=== PATIENT | female | born 1995 | race Two or more races ===

== ENCOUNTER 2018-06-03 11:08 | Emergency (ER) | payer SELFPAY ==
[~2018-06-03] VITALS: Ht 160 cm; Wt 77.1 kg
[2018-06-03 14:40] VITALS: BP 145/89
== END 2018-06-03 15:18 | disposition home or self-care (01) ==
LOC: ER 11:12
DX: N94.6 Dysmenorrhea, unspecified (principal); N39.0 Urinary tract infection, site not specified
CPT/HCPCS: 36415; 81002; 81025; 84702

== ENCOUNTER 2020-02-20 22:54 | Inpatient (IN) | payer SELFPAY ==
[~2020-02-20] VITALS: Ht 160 cm; Wt 84.8 kg
[2020-02-20 23:30] LABS: Basophils # (auto) 0.1 10 ^3/uL (0-0.2); Basophils % (auto) 0.6 % (0.0-2.0); Eosinophils # (auto) 0 10 ^3/uL (0-0.8); Eosinophils % (auto) 0.3 % (0.0-7.0); Hematocrit 40.3 % (36.0-46.0); Hemoglobin 13.6 g/dL (12.2-16.2); Lymphocytes # (auto) 1.2 10 ^3/uL (0.4-5.4); Lymphocytes % (auto) 9.9 % (10.0-50.0); Mean Corpuscular Hemoglobin 31.7 pg (28.0-32.0); Mean Corpuscular Hgb Conc. 33.7 g/dL (32.0-36.0); Mean Corpuscular Volume 94.2 fL (80.0-100.0); Monocytes # (auto) 0.5 10 ^3/uL (0-1.3); Monocytes % (auto) 4.3 % (0.0-12.0); Neutrophils # (auto) 10.2 10 ^3/uL (1.6-8.6); Neutrophils % (auto) 84.9 % (37.0-80.0); Platelet Count (auto) 357 10^3/uL (140-450); Red Blood Cells 4.28 10^6/uL (4.0-5.20); Red Cell Distribution Width 12.8 % (11.8-14.3)
[2020-02-20 23:50] LABS: Albumin 4.1 g/dL (3.4-5.0); BUN/Creatinine Ratio 12.2; Calcium 9.1 mg/dL (8.5-10.1); Potassium 3.5 mmol/L (3.5-5.1)
[2020-02-20 23:53] LABS: Bilirubin, Total 1.4 mg/dL (0.2-1.0); Total Protein 8.4 g/dL (6.4-8.2)
[2020-02-21 00:39] LABS: Urine Bacteria FEW /hpf (None Seen); Urine Blood 1+ /uL (Negative); Urine Mucus FEW (None Seen); Urine Specific Gravity 1.028 (1.001-1.035); Urine WBC 68 /hpf (0 - 5)
[2020-02-21] MEDS ORDERED: MORPHINE SULFATE 4 MG/ML SYR/VIAL IV ONE (02:15)
[2020-02-21] MEDS ORDERED: cefTRIAXone 1GM/50ML D5W 50 ML IV ONE (02:15)
[2020-02-21] MEDS ORDERED: metroNIDAZOLE 500MG/100ML 100 ML IV ONE (02:15)
[2020-02-21] MEDS ORDERED: ONDANSETRON HCL 4 MG/2 ML VIAL IV ONE (02:15)
[2020-02-21] MEDS ORDERED: SODIUM CHLORIDE 0.9% 1,000 ML IV ONE (02:15)
[2020-02-21] MEDS ORDERED: ACETAMINOPHEN 325 MG TAB PO PRN (03:15)
[2020-02-21] MEDS ORDERED: DOCUSATE SOD 100 MG CAP PO PRN (03:15)
[2020-02-21] MEDS ORDERED: LORazepam 0.5 MG TAB PO PRN (03:15)
[2020-02-21] MEDS: SODIUM CHLORIDE 0.9% 1,000 ML IV SCH ×4 (03:25→23:04)
[2020-02-21 05:06] VITALS: BP 105/48
[2020-02-21 05:58] VITALS: BP 105/48
--- NOTE | 2020-02-21 08:00 | NUR ---
OPENING SHIFT NOTE ASSUMED CARE OF PATIENT AWAKE AND ALERT. NO S/S OF DISTRESS NOTED OR COMPLAINTS OF PAIN. PATIENT UPDATED ON POC FOR THE DAY AND ALL QUESTIONS ANSWERED. BED IS IN LOWEST, LOCKED POSITION WITH SIDE RAILS UP X2 AND CALL LIGHT WITHIN REACH. WILL CONTINUE TO MONITOR Q1H AND PRN.
[2020-02-21 08:49] VITALS: BP 100/54
--- NOTE | 2020-02-21 09:00 | NUR ---
SPOKE WITH MD RECEIVED CALL FROM DR KENNEDY REGARDING SURGICAL CONSULT. NEW ORDERS RECEIVED, READ BACK AND VERIFIED. WILL CARRY OUT AND CONTINUE CARE.
[2020-02-21 09:30] LABS: Basophils # (auto) 0 10 ^3/uL (0-0.2); Basophils % (auto) 0.7 % (0.0-2.0); Eosinophils # (auto) 0.1 10 ^3/uL (0-0.8); Eosinophils % (auto) 0.9 % (0.0-7.0); Hematocrit 34.5 % (36.0-46.0); Hemoglobin 11.5 g/dL (12.2-16.2); Lymphocytes # (auto) 1.2 10 ^3/uL (0.4-5.4); Lymphocytes % (auto) 19.7 % (10.0-50.0); Mean Corpuscular Hemoglobin 31.7 pg (28.0-32.0); Mean Corpuscular Hgb Conc. 33.4 g/dL (32.0-36.0); Monocytes # (auto) 0.4 10 ^3/uL (0-1.3); Neutrophils # (auto) 4.5 10 ^3/uL (1.6-8.6); Neutrophils % (auto) 71.7 % (37.0-80.0); Platelet Count (auto) 291 10^3/uL (140-450); Red Blood Cells 3.63 10^6/uL (4.0-5.20); Red Cell Distribution Width 12.8 % (11.8-14.3); White Blood Cell 6.3 10^3/uL (4.4-10.8)
--- NOTE | 2020-02-21 09:30 | NUR ---
AT BEDSIDE DR ARELLANO AT BEDSIDE ROUNDING ON PATIENT.
[2020-02-21 09:50] LABS: INR 1.08 (0.9-1.15)
[2020-02-21 10:09] LABS: Calcium 7.9 mg/dL (8.5-10.1); Potassium 3.4 mmol/L (3.5-5.1)
[2020-02-21 10:12] LABS: BUN/Creatinine Ratio 17.5
[2020-02-21] MEDS: PIPERACILLIN-TAZOB 3.375GM 100 ML IV SCH ×3 (10:15→23:03)
[2020-02-21] MEDS ORDERED: POTASSIUM CHLORIDE 20 MEQ, LIDOCAINE 1% (LOCAL ANESTH.) 2 ML in SODIUM CHL 0.9% 100 ML IV ONE (11:45)
[2020-02-21] MEDS ORDERED: metroNIDAZOLE 500MG/100ML 100 ML IV SCH (12:00)
[2020-02-21 12:46] VITALS: BP 90/55
[2020-02-21] MEDS: metroNIDAZOLE 500MG/100ML 100 ML IV SCH ×2 (14:07→21:54)
[2020-02-21 16:46] VITALS: BP 101/58
--- NOTE | 2020-02-21 19:35 | NUR ---
Opening Shift Note Assumed care of patient, alert and oriented. No S/S of distress/SOB. Safety measures in place, bed in lowest position, bed rails raised x2, call light within reach, guard at bedside. Instructed on POC and to call for assist PRN, will continue to monitor for changes Q1hr and PRN.
[2020-02-21 22:00] VITALS: BP 98/54
[2020-02-22] VITALS (7 sets, daily range): BP systolic 87–123; BP diastolic 48–62
[2020-02-22] MEDS: PIPERACILLIN-TAZOB 3.375GM 100 ML IV SCH ×4 (04:06→21:07)
[2020-02-22 05:44] LABS: Basophils # (auto) 0 10 ^3/uL (0-0.2); Basophils % (auto) 0.9 % (0.0-2.0); Eosinophils # (auto) 0.1 10 ^3/uL (0-0.8); Hematocrit 34.7 % (36.0-46.0); Hemoglobin 11.6 g/dL (12.2-16.2); Lymphocytes # (auto) 1.3 10 ^3/uL (0.4-5.4); Lymphocytes % (auto) 31.1 % (10.0-50.0); Mean Corpuscular Hemoglobin 31.6 pg (28.0-32.0); Mean Corpuscular Hgb Conc. 33.3 g/dL (32.0-36.0); Mean Corpuscular Volume 94.9 fL (80.0-100.0); Monocytes # (auto) 0.3 10 ^3/uL (0-1.3); Monocytes % (auto) 7.9 % (0.0-12.0); Neutrophils # (auto) 2.5 10 ^3/uL (1.6-8.6); Neutrophils % (auto) 58.1 % (37.0-80.0); Platelet Count (auto) 268 10^3/uL (140-450); Red Blood Cells 3.65 10^6/uL (4.0-5.20); Red Cell Distribution Width 12.9 % (11.8-14.3); White Blood Cell 4.3 10^3/uL (4.4-10.8)
[2020-02-22 06:02] LABS: Potassium 3.4 mmol/L (3.5-5.1)
[2020-02-22 06:07] LABS: BUN/Creatinine Ratio 11.9
[2020-02-22] MEDS: metroNIDAZOLE 500MG/100ML 100 ML IV SCH ×3 (07:19→21:07)
--- NOTE | 2020-02-22 09:50 | NUR ---
Dr Landa bedside with patient.
[2020-02-22] MEDS ORDERED: cefTRIAXone 1GM/50ML D5W 50 ML IV SCH (10:00)
--- NOTE | 2020-02-22 11:40 | NUR ---
Dr Napoles bedside with patient discussing plan of care Addendum: 02/22/20 at 1152 by EMANI VALENZUELA RN RN Orders received and carried out
[2020-02-22] MEDS ORDERED: POTASSIUM CHL 20MEQ/100ML 100 ML IV ONE (12:00)
[2020-02-22] MEDS: SODIUM CHLORIDE 0.9% 1,000 ML IV SCH ×2 (12:08→20:10)
[2020-02-22] MEDS: MORPHINE SULF INJ 2 MG/ML SYRINGE 1ML IV PRN (21:07)
[2020-02-22] MEDS: ONDANSETRON HCL 4 MG/2 ML VIAL IV PRN (21:07)
--- NOTE | 2020-02-22 23:15 | NUR ---
WOUND CARE WOUND CARE TO SACRAL AREA PROVIDED. PATIENT TOLERATED WELL. PATIENT REPOSITIONED IN BED. COMPLETE LINEN CHANGE. WILL CONTINUE TO MONITOR Q1H AND PRN. Addendum: 02/23/20 at 0355 by Keshia Ruiz RN DISREGARD THIS NOTE. INTENDED FOR A DIFFERENT PATIENT.
--- NOTE | 2020-02-22 23:55 | NUR ---
ROUNDS PATIENT IS RESING IN BED EYES CLOSED. NO S /SX OF DISTRESS, SOB OR PAIN. HEAD OF BED IS UP >30 DEGREES. BEDSIDE TABLE, CALL LIGHT AND PERSONAL BELONGINGS WITHIN REACH. WILL CONTINUE TO MONITOR Q1H AND PRN.
[2020-02-23] MEDS: SODIUM CHLORIDE 0.9% 1,000 ML IV SCH ×2 (04:51→15:23)
[2020-02-23] MEDS: PIPERACILLIN-TAZOB 3.375GM 100 ML IV SCH ×4 (04:51→22:27)
[2020-02-23 05:00] VITALS: BP 98/59
[2020-02-23] MEDS: metroNIDAZOLE 500MG/100ML 100 ML IV SCH ×3 (06:13→21:26)
[2020-02-23 08:00] VITALS: BP 91/49
[2020-02-23 09:00] VITALS: BP 91/49
--- NOTE | 2020-02-23 09:00 | NUR ---
Dr Arenas bedside with patient discussing plan of care
--- NOTE | 2020-02-23 09:00 | NUR ---
Dr Napoles bedside with patient
[2020-02-23] MEDS ORDERED: IOHEXOL 300 MG/ML 100ML BOTTLE IJ ONE (12:23)
--- NOTE | 2020-02-23 12:30 | NUR ---
Patient off floor to surgery
--- NOTE | 2020-02-23 12:31 | NUR ---
Nutrition Assessment Est energy needs ABW 52 [id number] kcal (23-25 kcal/kg ABW), Est protein needs: 52-57 g (1-1.1g/kg ABW) Will reassess prn. Addendum: 02/23/20 at [address] Amended: Links added.
[2020-02-23 13:00] VITALS: BP 103/56
[2020-02-23] MEDS ORDERED: MEPERIDINE HCL (25 MG/ML) 1ML VIAL ONE (13:15)
[2020-02-23] MEDS ORDERED: fentaNYL CITRATE 100 MCG/2 ML VL ONE (13:15)
[2020-02-23] MEDS ORDERED: MIDAZOLAM HCL 1MG/1ML-2 ML VIAL ONE (13:15)
[2020-02-23] MEDS ORDERED: PHENYLEPHRINE HCL 10 MG/ML VL IV ONE (13:27)
[2020-02-23] MEDS ORDERED: SUCCINYLCHOLINE CHLORIDE 20 MG/ML 10ML VIAL IV ONE (13:27)
[2020-02-23] MEDS ORDERED: DexAMETHasone SOD PHOS 10MG/1ML VIAL INJ ONE (13:39)
[2020-02-23] MEDS ORDERED: PROPOFOL 10 MG/ML 20 ML IV ONE (13:39)
[2020-02-23] MEDS ORDERED: LABETALOL HCL 5 MG/ML 4ML SYRINGE IV PRN (14:15)
[2020-02-23] MEDS ORDERED: MIDAZOLAM HCL 1MG/1ML-2 ML VIAL IV PRN (14:15)
[2020-02-23] MEDS ORDERED: ePHEDrine SULFATE 50 MG/ML AMP IV PRN (14:15)
[2020-02-23] MEDS ORDERED: MORPHINE SULFATE 4 MG/ML SYR/VIAL IV PRN (14:15)
[2020-02-23] MEDS ORDERED: HYDROmorphone HCL 2 MG/ML VL IV PRN (14:15)
[2020-02-23] MEDS ORDERED: ONDANSETRON HCL 4 MG/2 ML VIAL IV PRN (14:15)
--- NOTE | 2020-02-23 14:29 | NUR ---
assessment Patient is a 24 year old female who is alert and oriented. Patients cognitive abilities are intact. Prior to admission patient lived home with family and functioned independently. Patient informed me she is able to care for her own ADLs. Per patient she will return home to her prior living arrangements post discharge and family will transport her home. Patient has no insurance. Patient has been assessed by John Trent of [facility]. Patient may qualify for [employer] if she brings back all her paperwork. I have provided patient with resources for [facility], Dr. Anderson, and [facility] urgent care for follow up visits. I have provided patient with a prescription card from community assistance program. Patient has no post discharge needs identified at this time. I informed patient she has a right to speak to a social services coordinator regarding all care. I informed patient she has a right to participate in any and all discharge planning. Patient does not have a POA and advanced directive. I have offered patient information on POA and advanced directives. I informed the patient the advantages and benefits of having an Advanced Directive. Patient verbalized understanding and agreed to discharge plan. Addendum: 02/23/20 at 1434 by Sherrie MCCLELLAN amend above note Per John Trent from [facility] patient is over income. Addendum: 02/23/20 at 1434 by Sherrie MCCLELLAN Amended: Links added.
--- NOTE | 2020-02-23 15:25 | NUR ---
Patient back in room from procedure. Patient resting comfortably with no complaints of pain or discomfort. VS 107/56, 95%, 18, 74, 97.8. Will continue to monitor
[2020-02-23 17:04] VITALS: BP 107/56
--- NOTE | 2020-02-23 19:20 | NUR ---
RECEIVED PATIENT FROM DAY SHIFT RN. PATIENT RESTING IN BED. NO S/S OF DISTRESS NOTED. DENIED PAIN FOR NOW. POC INSTRUCTED AND ENCOURAGED PATIENT TO CALL FOR FLIGHT CONTROLS ENGINEER IF NEEDED. BED IN LOWEST POSITION WITH SIDE RAILS UP X 2. CALL LIGHT WITHIN REACH. CONTINUE TO MONITOR FOR CHANGES Q1H AND PRN.
--- NOTE | 2020-02-23 21:25 | NUR ---
PATIENT WALKED TO BATHROOM WITH STEADY GAIT. CONTINUE CARE.
[2020-02-23 22:00] VITALS: BP 99/55
[2020-02-23] MEDS: HYDROcodone-ACET 5/325MG TAB PO PRN (22:41)
--- NOTE | 2020-02-23 22:45 | NUR ---
PATIENT C/O PAIN @ 11/06. MEDICATED PATIENT ORDERED. CONTINUE TO MONITOR.
--- NOTE | 2020-02-23 23:40 | NUR ---
REASSESSED PAIN. PATIENT SLEEPING. NO S/S OF PAIN NOTED. CONTINUE TO MONITOR.
--- NOTE | 2020-02-24 00:36 | NUR ---
NPO NOW. WATER REMOVED FROM BEDSIDE. CONTINUE TO MONITOR.
--- NOTE | 2020-02-24 03:37 | NUR ---
PATIENT SLEEPING. NO S/S OF DISTRESS NOTED. CONTINUE CARE
[2020-02-24] MEDS: PIPERACILLIN-TAZOB 3.375GM 100 ML IV SCH ×4 (03:45→23:15)
[2020-02-24] MEDS: SODIUM CHLORIDE 0.9% 1,000 ML IV SCH ×3 (03:45→19:45)
[2020-02-24 05:00] VITALS: BP 93/55
[2020-02-24] MEDS: metroNIDAZOLE 500MG/100ML 100 ML IV SCH ×3 (06:14→21:46)
--- NOTE | 2020-02-24 06:24 | NUR ---
REINFORCED NPO FOR NOW. PATIENT VERBALIZED UNDERSTANDING. CONTINUE TO MONITOR.
--- NOTE | 2020-02-24 08:00 | NUR ---
Opening Shift Note Assumed care of patient, awake and alert. No S/S of distress/SOB, 4/10 abdominal pain. Instructed on POC and to call for assist PRN, will continue to monitor for changes Q1hr and PRN.
[2020-02-24 09:00] VITALS: BP 86/45
--- NOTE | 2020-02-24 11:00 | NUR ---
CHG wipes/bath done in preparation for surgery.
[2020-02-24 13:00] VITALS: BP 97/54
[2020-02-24] MEDS ORDERED: ceFAZolin 1GM/50ML 50 ML IV ONE (13:29)
--- NOTE | 2020-02-24 13:30 | NUR ---
Patient brought to Pre-op for Laparoscopic Cholecystectomy possible open to be performed by Dr. Patton, with consents signed by patient. Gave reports to Shaun CORBIN.
[2020-02-24] MEDS ORDERED: PHENYLEPHRINE HCL 10 MG/ML VL IV ONE (14:26)
[2020-02-24] MEDS ORDERED: ROCURONIUM 10MG/ML 10ML VIAL IV ONE (14:26)
[2020-02-24] MEDS ORDERED: GLYCOPYRROLATE 0.2 MG/ML 1ML VIAL IV ONE (14:26)
[2020-02-24] MEDS ORDERED: NEOSTIGMINE 1 MG/ML INJ (10mg/10ML VIAL) IV ONE (14:26)
[2020-02-24] MEDS ORDERED: fentaNYL CITRATE 100 MCG/2 ML VL ONE (14:29)
[2020-02-24] MEDS: KETOROLAC TROMETH 30 MG/ML 1ML VIAL IV ONE ×2 (14:30→16:37)
[2020-02-24] MEDS ORDERED: MIDAZOLAM HCL 1MG/1ML-2 ML VIAL ONE (14:30)
[2020-02-24] MEDS ORDERED: ONDANSETRON HCL 4 MG/2 ML VIAL IV PRN (14:30)
[2020-02-24] MEDS ORDERED: MEPERIDINE HCL (25 MG/ML) 1ML VIAL ONE (14:30)
[2020-02-24] MEDS ORDERED: LABETALOL HCL 5 MG/ML 4ML SYRINGE IV PRN (14:30)
[2020-02-24] MEDS ORDERED: ePHEDrine SULFATE 50 MG/ML AMP IV PRN (14:30)
[2020-02-24] MEDS ORDERED: MORPHINE SULFATE 4 MG/ML SYR/VIAL IV PRN (14:30)
[2020-02-24] MEDS ORDERED: PROPOFOL 10 MG/ML 20 ML IV ONE (15:16)
[2020-02-24] MEDS ORDERED: DexAMETHasone SOD PHOS 10MG/1ML VIAL INJ ONE (15:16)
[2020-02-24] MEDS: HYDROmorphone HCL 2 MG/ML VL IV PRN ×4 (15:50→16:25)
--- NOTE | 2020-02-24 17:15 | NUR ---
Received reports from [employer], patient is S/P Laparoscopic Cholecystectomy with DIANA drain. Patient back to room alert and oriented x4, not in respiratory distress, 6/10 pain level. With 3 small abdominal incisions with dressing dry and intact. DIANA drain on right side of the abdomen draining to sanguinous output of 25ml. Abdominal binder applied. Bed alarm on and side rails up x2. Will continue to monitor.
[2020-02-24] MEDS: HYDROcodone-ACET 5/325MG TAB PO PRN (17:43)
--- NOTE | 2020-02-24 19:30 | NUR ---
Opening Shift Note Assumed care of patient, awake and alert. No S/S of distress/SOB or pain. S/p Laparoscopic cholecystectomy with 3 trochar sites. Area is dry and intact. Abdominal pain of 8/10. Will give prn pain medication as md ordered. Educated on use of incentive spirometry and early ambulation for wound healing. Insructed on POC and to call for assist PRN, will continue to monitor for changes Q1hr and PRN.
[2020-02-24] MEDS: MORPHINE SULF INJ 2 MG/ML SYRINGE 1ML IV PRN (20:14)
--- NOTE | 2020-02-24 20:14 | NUR ---
Pain medication given Pain is 8/10. Medicated. Assisted patient to the bathroom. Tolerated. Will continue to monitor.
[2020-02-24 22:00] VITALS: BP 106/60
--- NOTE | 2020-02-24 23:13 | NUR ---
Assisted patient to bathroom. tolerated and no complains
[2020-02-25] MEDS: MORPHINE SULF INJ 2 MG/ML SYRINGE 1ML IV PRN ×5 (00:40→22:09)
--- NOTE | 2020-02-25 00:42 | NUR ---
PATIENT C/O PAIN @ 04/08. MEDICATED PATIENT ORDERED. CONTINUE TO MONITOR.
--- NOTE | 2020-02-25 01:10 | NUR ---
REASSESSED PAIN, PATIENT SLEEPING. NO S/S OF PAIN NOTED. CONTINUE TO MONITOR.
[2020-02-25] MEDS: SODIUM CHLORIDE 0.9% 1,000 ML IV SCH ×3 (04:17→22:09)
[2020-02-25] MEDS: PIPERACILLIN-TAZOB 3.375GM 100 ML IV SCH ×3 (04:17→17:12)
--- NOTE | 2020-02-25 04:35 | NUR ---
ASSISTED PATIENT TO BATHROOM AND BACK TO BED. PATIENT WALKED WELL WITH STEADY GAIT. NO S/S OF DISTRESS NOTED. CONTINUE CARE
[2020-02-25 05:00] VITALS: BP 98/61
--- NOTE | 2020-02-25 05:36 | NUR ---
MEDICATED PATIENT FOR PAIN @ 01/06. CONTINUE TO MONITOR.
[2020-02-25 05:41] LABS: Basophils # (auto) 0 10 ^3/uL (0-0.2); Basophils % (auto) 0.3 % (0.0-2.0); Eosinophils # (auto) 0 10 ^3/uL (0-0.8); Hematocrit 34.8 % (36.0-46.0); Hemoglobin 12.2 g/dL (12.2-16.2); Lymphocytes # (auto) 0.8 10 ^3/uL (0.4-5.4); Lymphocytes % (auto) 9.2 % (10.0-50.0); Mean Corpuscular Hgb Conc. 35.1 g/dL (32.0-36.0); Mean Corpuscular Volume 94.1 fL (80.0-100.0); Monocytes # (auto) 0.4 10 ^3/uL (0-1.3); Monocytes % (auto) 4.5 % (0.0-12.0); Neutrophils # (auto) 7.9 10 ^3/uL (1.6-8.6); Platelet Count (auto) 305 10^3/uL (140-450); Red Cell Distribution Width 13.2 % (11.8-14.3); White Blood Cell 9.2 10^3/uL (4.4-10.8)
--- NOTE | 2020-02-25 05:55 | NUR ---
REASSESSED PAIN @ 11/06. CONTINUE TO MONITOR
[2020-02-25] MEDS: metroNIDAZOLE 500MG/100ML 100 ML IV SCH ×3 (06:16→22:07)
--- NOTE | 2020-02-25 07:05 | NUR ---
OPENING SHIFT NOTE ASSUMED CARE OF PATIENT FROM APPRENTICE PATTERN MAKER RN DAV. PATIENT IS AWAKE, ALERT, AND ORIENTED X4. PATIENT HAS NO S/S OF DISTRESS/SOB OR PAIN. INSTRUCTED PATIENT ON POC, PATIENT VERBALIZED UNDERSTANDING. BED IS IN LOWEST POSITION WITH SIDE RAILS RAISED X2, BED WHEELS LOCKED, AND CALL LIGHT IS WITHIN REACH. WILL CONTINUE TO MONITOR.
[2020-02-25 07:48] VITALS: BP 104/50
[2020-02-25 09:00] VITALS: BP 104/50
--- NOTE | 2020-02-25 12:05 | NUR ---
Nutrition Followup Notes Wt: 76.3 kg Pt`s sleeping with no family by bedside. per records pt s/p lap sj 02/23. pt is currently on clear liq diet with adequate Po of 100% x 1 per RN doc Est energy needs ABW 52 [id number] kcal (23-25 kcal/kg ABW), Est protein needs: 52-57 g (1-1.1g/kg ABW) Will reassess prn. LABS: CA 8.0 L GI: Pt has no BM reported per RN doc BS: 17 mod risk. Refer to wound assessment report for full details. PES: Altered nutrition related lab values r.t current chronic medical condition aeb hyperbil elev LFT Comments: Will continue to monitor PO intake, skin status and pertinent labs. F/u mod 2-3 days Rec: 1) advance diet as medically feasible. 2) refer to [facility] dietitian on DC. 3) continue current plan of care
[2020-02-25 13:00] VITALS: BP 100/60
[2020-02-25] MEDS: ONDANSETRON HCL 4 MG/2 ML VIAL IV PRN ×2 (14:53→22:08)
[2020-02-25 17:00] VITALS: BP 95/54
[2020-02-25] MEDS: HYDROcodone-ACET 5/325MG TAB PO PRN (17:24)
--- NOTE | 2020-02-25 18:56 | NUR ---
CLOSING SHIFT NOTE ENDORSED CARE FOR CLERK MANAGER RN. PATIENT HAS NO S/S OF DISTRESS/SOB OR PAIN AT THIS TIME.
--- NOTE | 2020-02-25 19:35 | NUR ---
Opening Shift Note Assumed care of patient, patient AAOx4. No S/S of distress/SOB or pain. 2 Dressings above umbilical region C/D/I and DIANA drain @ RUQ patent and draining to gravity. Bed in lowest locked position, safety precautions in place and call light within reach. Instructed on POC and to call for assist PRN, will continue to monitor for changes Q1hr and PRN. Signed: 02/26/20 at 0520 by REAL LAWRENCE <Co-Signature Required> Co-Signed: 02/26/20 at 0520 by Caro Leary RN RN
[2020-02-25 22:04] VITALS: BP 104/56
[2020-02-26] MEDS: PIPERACILLIN-TAZOB 3.375GM 100 ML IV SCH ×3 (00:16→10:04)
[2020-02-26] MEDS: ONDANSETRON HCL 4 MG/2 ML VIAL IV PRN (04:10)
[2020-02-26] MEDS: MORPHINE SULF INJ 2 MG/ML SYRINGE 1ML IV PRN (04:11)
[2020-02-26] MEDS: SODIUM CHLORIDE 0.9% 1,000 ML IV SCH (04:13)
[2020-02-26 04:57] VITALS: BP 93/49
[2020-02-26] MEDS: metroNIDAZOLE 500MG/100ML 100 ML IV SCH ×2 (05:43→14:00)
--- NOTE | 2020-02-26 07:08 | NUR ---
OPENING SHIFT NOTE ASSUMED CARE OF PATIENT FROM INTEGRATION AIDE RN DAV. PATIENT IS AWAKE, ALERT, AND ORIENTED X4. PATIENT HAS NO S/S OF DISTRESS/SOB OR PAIN. INSTRUCTED PATIENT ON POC, PATIENT VERBALIZED UNDERSTANDING. BED IS IN LOWEST POSITION WITH SIDE RAILS RAISED X2, BED WHEELS LOCKED, AND CALL LIGHT IS WITHIN REACH. WILL CONTINUE TO MONITOR.
[2020-02-26 07:50] VITALS: BP 91/58
[2020-02-26 09:00] VITALS: BP 91/58
--- NOTE | 2020-02-26 09:30 | NUR ---
MD LYNNE AT BEDSIDE UPDATED MD ON PATIENT'S STATUS, PER MD PATIENT CAN BE DISCHARGED AFTER CMP RESULTS COME BACK. PER MD, DR. KENNEDY HAS CLEARED PATIENT FOR DISCHARGE. WILL FOLLOW THROUGH WITH ORDERS.
[2020-02-26] MEDS: HYDROcodone-ACET 5/325MG TAB PO PRN (10:12)
[2020-02-26 10:43] LABS: Albumin 3.3 g/dL (3.4-5.0)
[2020-02-26 10:47] LABS: Bilirubin, Total 0.6 mg/dL (0.2-1.0); Total Protein 6.7 g/dL (6.4-8.2)
[2020-02-26 10:53] LABS: Potassium 2.8 mmol/L (3.5-5.1)
--- NOTE | 2020-02-26 10:55 | NUR ---
SPOKE WITH MD LYNNE INFORMED MD OF PATIENT'S POTASSIUM, AST, AND ALT LEVELS. MD IS AWARE AND ORDER POTASSIUM TO BE GIVEN AND CLEARED PATIENT FOR DISCHARGE. WILL FOLLOW THROUGH WITH ORDERS.
[2020-02-26] MEDS ORDERED: POTASSIUM EFFERVESENT TAB 25 MEQ PO ONE (11:00)
[2020-02-26 12:14] VITALS: BP 96/60
[2020-02-26 12:46] VITALS: BP 96/60
== END 2020-02-26 15:00 | disposition home or self-care (01) | DRG 854 ==
LOC: ER 22:56 → CENTRAL 22:57
PROVIDERS: ADMIT Hospitalist; ATTEND Family Medicine
PROC: BF101ZZ Fluoroscopy of Bile Ducts using Low Osmolar Contrast (ICD-10-PCS; 2020-02-23)
PROC: 0FC98ZZ Extirpation of Matter from Common Bile Duct, Via Natural or Artificial Opening Endoscopic (ICD-10-PCS; principal; 2020-02-23 13:32)
PROC: 0FT44ZZ Resection of Gallbladder, Percutaneous Endoscopic Approach (ICD-10-PCS; 2020-02-24)
DX: A41.9 Sepsis, unspecified organism (principal); N39.0 Urinary tract infection, site not specified; K80.66 Calculus of gallbladder and bile duct with acute and chronic cholecystitis without obstruction; I10 Essential (primary) hypertension; E66.9 Obesity, unspecified; Z68.33 Body mass index [BMI] 33.0-33.9, adult
CPT/HCPCS: 36415; 74018; 74181; 76000; 76705; 80048; 80053; 80061; 81001; 81025; 82150; 82247; 83690; 85025; 85610; 86850; 86900; 86901; 87086; G0378; J0330; J0690; J0696; J1100; J1885; J2001; J2250; J2405; J2543; J2704; J3480; J3490

== ENCOUNTER 2020-09-12 20:29 | Emergency (ER) | payer OTHER, MEDICAID ==
[~2020-09-12] VITALS: Ht 160 cm; Wt 80.3 kg
[2020-09-12 21:51] VITALS: BP 129/84
== END 2020-09-12 22:57 | disposition home or self-care (01) ==
LOC: ER 20:33
DX: S16.1XXA Strain of muscle, fascia and tendon at neck level, initial encounter (principal); S29.012A Strain of muscle and tendon of back wall of thorax, initial encounter; V49.9XXA Car occupant (driver) (passenger) injured in unspecified traffic accident, initial encounter; Y93.89 Activity, other specified; Y92.89 Other specified places as the place of occurrence of the external cause; Y99.8 Other external cause status
CPT/HCPCS: 70450; 72040; 72070; 81025